=== PATIENT | male | born 1965 | race Caucasian/White ===

== ENCOUNTER 2020-04-22 08:09 | Emergency (ER) | payer OTHER ==
[~2020-04-22] VITALS: Ht 182.9 cm; Wt 111.9 kg
--- NOTE | 2020-04-22 08:37 | NUR ---
PT IS A 54M WHO WOKE UP THIS MORNING AT 0230 WITH A HR OVER A 100 AND A BP THAT WAS 150/110. HE WOKE UP WITH HEARTBURN AND IS HAVING A LITTLE DISCOMFORT IN HIS CHEST. PT TOOK PROPRANOLOL TWICE AND CARVEDILOL THIS MORNING. PROVIDER AT BEDSIDE FOR EVAL AND POC. CARDIAC, BP, AND SP02 MONITORS IN PLACE.
[2020-04-22] MEDS ORDERED: DILTIAZEM 5 MG/ML, 5ML ONE (08:47)
[2020-04-22] MEDS ORDERED: ASPIRIN 81 MG TABLET CHEW ONE (08:47)
[2020-04-22] MEDS ORDERED: CARV6.252 PO (08:49)
[2020-04-22] MEDS ORDERED: ASPIRIN 81 MG TABLET CHEW PO ONE (09:00)
[2020-04-22] MEDS ORDERED: SODIUM CHLORIDE FLUSH 10ML SYR IVF ONE (09:00)
[2020-04-22] MEDS ORDERED: DILTIAZEM 5 MG/ML, 5ML IV ONE (09:00)
--- NOTE | 2020-04-22 09:00 | NUR ---
PT HR DOWN TO 70'S AFTER CARVEDILOL. PT NOT HAVING ANY PAIN AT THIS TIME. ALL MONTIORS IN PLACE.
[2020-04-22 09:12] LABS: BASOPHILS % (AUTO) 1 % (0-1); EOSINOPHILS % (AUTO) 3 % (1-7); LYMPHOCYTES % (AUTO) 18 % (22-44); MEAN CORPUSCULAR HEMOGLOBIN 29.7 pg (27.5-34.5); MEAN CORPUSCULAR HGB CONC 33.9 g/dL (33.2-36.2); MEAN PLATELET VOLUME 8.2 fL (7.4-10.4); MONOCYTES % (AUTO) 9 % (2-9); NEUTROPHILS % (AUTO) 70 % (42-75); PLATELET COUNT 235 x10^3/uL (130-400); RED BLOOD COUNT 5.38 x10^6/uL (4.38-5.82); RED CELL DISTRIBUTION WIDTH 12.8 % (9.4-14.8)
[2020-04-22 09:14] LABS: MD NO
--- NOTE | 2020-04-22 09:47 | NUR ---
PT IS FEELING SOME DISCOMFORT IN HIS CHEST MIDSTERNUM. MD NOTIFIED. ALL MONITORS IN PLACE AND CALL LIGHT WITHIN REACH.
[2020-04-22 09:50] LABS: ALBUMIN 3.8 g/dL (3.4-5.0); ANION GAP 7 mmol/L (5-15); CALCIUM 9.2 mg/dL (8.5-10.1); CHLORIDE 111 mmol/L (98-107)
[2020-04-22 10:07] LABS: ALANINE AMINOTRANSFERASE 54 U/L (12-78); ALKALINE PHOSPHATASE 75 U/L (45-117); BILIRUBIN,TOTAL 0.5 mg/dL (0.2-1.0); CREATININE 0.98 mg/dL (0.7-1.3); TROPONIN I < 0.015 ng/mL (0.000-0.045)
--- NOTE | 2020-04-22 10:49 | NUR ---
PT CONVERTED TO SINUS RYTHM WITH A RATE OF 65. VITALS UPDATED, NOTIFIED, PT STATES HE FEELS BETTER AND NO LONGER FEELS ANY DISCOMFORT IN HIS CHEST,.
[2020-04-22 11:23] VITALS: BP 115/70
== END 2020-04-22 11:25 | disposition home or self-care (01) ==
LOC: ED 10:13
DX: I48.0 Paroxysmal atrial fibrillation (principal); R07.89 Other chest pain; R00.2 Palpitations
CPT/HCPCS: 36415; 71045; 80053; 83880; 84484; 85025; 93005; 96374; 99285

== ENCOUNTER → 2020-05-27 | Outpatient (CLI) | payer OTHER ==
[~2020-05-27] MED LIST: CARV6.252 PO
== END | disposition home or self-care (01) ==
LOC: CFH 13:39
PROVIDERS: ATTEND Internal Medicine Cardiovascular Disease
DX: I10 Essential (primary) hypertension (principal); I48.0 Paroxysmal atrial fibrillation
CPT/HCPCS: 93306

== ENCOUNTER 2020-09-24 23:49 | Emergency (ER) | payer OTHER ==
[~2020-09-24] VITALS: Ht 182.9 cm; Wt 106.5 kg
[2020-09-25 00:37] LABS: BASOPHILS % (AUTO) 0 % (0-1); EOSINOPHILS % (AUTO) 3 % (1-7); LYMPHOCYTES % (AUTO) 24 % (22-44); MEAN CORPUSCULAR HEMOGLOBIN 29.9 pg (27.5-34.5); MEAN CORPUSCULAR HGB CONC 34.3 g/dL (33.2-36.2); MEAN PLATELET VOLUME 8.2 fL (7.4-10.4); MONOCYTES % (AUTO) 11 % (2-9); NEUTROPHILS % (AUTO) 62 % (42-75); PLATELET COUNT 202 x10^3/uL (130-400); RED CELL DISTRIBUTION WIDTH 13.2 % (9.4-14.8)
[2020-09-25 00:47] LABS: ALANINE AMINOTRANSFERASE 39 U/L (12-78); ALBUMIN 3.4 g/dL (3.4-5.0); ANION GAP 5 mmol/L (5-15); CALCIUM 8.9 mg/dL (8.5-10.1); CHLORIDE 108 mmol/L (98-107); CREATININE 0.91 mg/dL (0.7-1.3)
[2020-09-25 00:58] LABS: ALKALINE PHOSPHATASE 66 U/L (45-117); BILIRUBIN,TOTAL 0.4 mg/dL (0.2-1.0); TOTAL PROTEIN 6.6 g/dL (6.4-8.2); TROPONIN I < 0.015 ng/mL (0.000-0.045)
[2020-09-25 01:51] VITALS: BP 121/68
== END 2020-09-25 01:49 | disposition home or self-care (01) ==
LOC: ED 09-25 00:19
DX: I48.91 Unspecified atrial fibrillation (principal); R00.2 Palpitations; I10 Essential (primary) hypertension; G89.29 Other chronic pain
CPT/HCPCS: 36415; 71045; 80053; 84443; 84484; 85025; 93005; 99285